=== PATIENT | female | born 1980 | race African-American/Black ===

== ENCOUNTER 2018-09-18 09:30 | Inpatient (IN) | payer OTHER ==
[2018-09-18 09:53] VITALS: BMI 18.2
--- NOTE | 2018-09-18 10:54 | HP ---
CIWA Score Nausea/Vomitin Muscle Tremors: 4-Moderate,w/Arms Extend Anxiety: 3 Agitation: 3 Paroxysmal Sweats: 3 Orientation: 0-Oriented Tacttile Disturbances: 0-None Auditory Disturbances: 0-None Visual Disturbances: 7-Constant Hallucination Headache: 2-Mild CIWA-Ar Total Score: 27 - Admission Criteria OASAS Guidelines: Admission for Medically Managed Detox: Requires at least one of the followin. CIWA greater than 12 2. Seizures within the past 24 hours 3. Delirium tremens within the past 24 hours 4. Hallucinations within the past 24 hours 5. Acute intervention needed for co occurring medical disorder 6. Acute intervention needed for co occurring psychiatric disorder 7. Severe withdrawal that cannot be handled at a lower level of care (continued vomiting, continued diarrhea, abnormal vital signs) requiring intravenous medication and/or fluids 8. Admission ROS [facility] - HPI Chief Complaint: i need to stop drinking Allergies/Adverse Reactions: Allergies Allergy/AdvReac Type Severity Reaction Status Date / Time No Known Allergies Allergy Verified 09/18/18 10:14 History of Present Illness: pt is a 37yr old female first time in our detox seeking detox for treatment. Exam Limitations: No Limitations - Ebola screening Have you traveled outside of the country in the last 21 days: No Have you had contact with anyone from an Ebola affected area: No Have you been sick,other than usual withdrawal symptoms: No Do you have a fever: No - Review of Systems Constitutional: Chills, Night Sweats, Changes in sleep EENT: reports: Tearing, Nose Congestion Respiratory: reports: Cough Cardiac: reports: Syncope GI: reports: Nausea, Vomiting, Indigestion, Abdominal cramping : reports: No Symptoms Reported Musculoskeletal: reports: No Symptoms Reported Integumentary: reports: Flushing, Sweating Neuro: reports: Headache, Tingling, Tremors Endocrine: reports: Excessive Sweating, Flushing, Intolerance to Cold, Intolerance to Heat Hematology: reports: No Symptoms Reported Psychiatric: reports: Judgement Intact, Mood/Affect Appropiate, Orientated x3, Agitated, Anxious Other Systems: Reviewed and Negative Patient History - Patient Medical History Hx Anemia: No Hx Asthma: Yes (Pt is on MDI.) Hx Chronic Obstructive Pulmonary Disease (COPD): No Hx Cancer: No Hx Cardiac Disorders: No Hx Hypertension: Yes (non compliant with meds.) Hx Hypercholesterolemia: No Hx Pacemaker: No HX Cerebrovascular Accident: No Hx Seizures: No Hx Dementia: No Hx Diabetes: No Hx Gastrointestinal Disorders: No Hx Liver Disease: No Hx Genitourinary Disorders: No Hx Sexually Transmitted Disorders: No Hx Renal Disease (ESRD): No Hx Thyroid Disease: No Hx Human Immunodeficiency Virus (HIV): No Hx Hepatitis C: No Hx Depression: Yes Hx Suicide Attempt: No Hx Bipolar Disorder: No Hx Schizophrenia: No Other Medical History: anxiety/adhd - Patient Surgical History Past Surgical History: Yes Hx Appendectomy: Yes Anesthesia Reaction: No - PPD History Previous Implant?: Yes Documented Results: Positive w/proof Implanted On Prior [facility] Admission?: No PPD to be Administered?: No - Reproductive History Patient is a Female of Child Bearing Age (11 -55 yrs old): Yes Last Menstrual Period: 09/09/18 Patient : No - Smoking Cessation Smoking history: Current every day smoker Have you smoked in the past 12 months: Yes Cigars Per Day: 3 Hx Chewing Tobacco Use: No Initiated information on smoking cessation: Yes 'Breaking Loose' booklet given: 09/18/18 - Substance & Tx. History Hx Alcohol Use: Yes Hx Substance Use: Yes Substance Use Type: Alcohol, Marijuana - Substances Abused Alcohol Route: Oral Frequency: Daily Amount used: 4-5 glasses of lala Age of first use: 28 Date of Last Use: 09/18/18 Marijuana/Hashish Route: Smoking Frequency: 1-3 times last 30 days Amount used: 2 tokes off a joint Age of first use: 17 Date of Last Use: 09/16/18 Family Disease History - Family Disease History Family History: Denies Admission Physical Exam [facility] - Vital Signs Vital Signs: Vital Signs - 24 hr 09/18/18 09:37 Temperature 99.2 F Pulse Rate 115 H Respiratory 20 Rate Blood Pressure 155/101 H - Physical General Appearance: Yes: Appropriately Dressed, Thin, Tremorous, Irritable, Sweating, Anxious HEENTM: Yes: Normal Voice, Nasal Congestion, Rhinorrhea Respiratory: Yes: Lungs Clear, Normal Breath Sounds, No Respiratory Distress Neck: Yes: No masses,lesions,Nodules Breast: Yes: Within Normal Limits Cardiology: Yes: Regular Rhythm, Regular Rate, S1, S2 Abdominal: Yes: Normal Bowel Sounds, Non Tender, Soft Genitourinary: Yes: Within Normal Limits Back: Yes: Normal Inspection Musculoskeletal: Yes: full range of Motion, Back pain Extremities: Yes: Normal Capillary Refill, Normal Inspection, Tremors Neurological: Yes: Fully Oriented, Alert, Normal Response Integumentary: Yes: Normal Color, Diaphoresis Lymphatic: Yes: Within Normal Limits - Diagnostic (1) Alcohol dependence with uncomplicated withdrawal Current Visit: Yes Status: Chronic (2) Nicotine dependence Current Visit: Yes Status: Chronic Qualifiers: Nicotine product type: cigarettes Substance use status: uncomplicated Qualified Code(s): F17.210 - Nicotine dependence, cigarettes, uncomplicated Cleared for Admission [facility] - Detox or Rehab [facility] Level of Care: Medically Managed Detox Regimen/Protocol: Librium [facility] Breath Alcohol Content Breath Alcohol Content: 0.216 Urine Pregancy Test - Result Urine Test Results: Negative- NO Line Present Urine Drug Screen - Results Drug Screen Negative: No Urine Drug Screen Results: THC-Marijuana, AMP-Amphetamines, BZO-Benzodiazepines
[2018-09-18] MEDS ORDERED: guaiFENesin/D-METHORPHAN HB 10 ML UNIT-DOSE CUPS PO PRN (11:04)
[2018-09-18] MEDS ORDERED: LOPERAMIDE HCL 2 MG CAPSULE PO PRN (11:04)
[2018-09-18] MEDS ORDERED: MAG HYDROX/AL HYDROX/SIMETH 30 ML UNIT-DOSE CUP PO PRN (11:04)
[2018-09-18] MEDS ORDERED: hydrOXYzine PAMOATE 50 MG CAPSULE (FP) PO PRN (11:04)
[2018-09-18] MEDS ORDERED: chlordiazePOXIDE HCL 25 MG CAPSULE PO PRN (11:04)
[2018-09-18] MEDS ORDERED: MAGNESIUM HYDROX 2400MG/30ML ORAL SUSPENSION 30 ML CUP PO PRN (11:04)
[2018-09-18] MEDS ORDERED: ACETAMINOPHEN 325 MG TABLET (FP) PO PRN (11:04)
[2018-09-18] MEDS ORDERED: IBUPROFEN 400 MG TABLET (FP) PO PRN (11:04)
[2018-09-18] MEDS ORDERED: NICOTINE POLACRILEX 2 MG GUM BUC PRN (11:04)
[2018-09-18] MEDS ORDERED: MAGNESIUM CITRATE 300 ML BOTTLE PO PRN (11:04)
[2018-09-18] MEDS ORDERED: MENTHOL/PHENOL 1 EACH UD MM PRN (11:04)
[2018-09-18] MEDS ORDERED: P-EPHED 60MG/TRIPROLIDI 2.5MG TABLET PO PRN (11:04)
[2018-09-18] MEDS ORDERED: ONDANSETRON *ODT* 4 MG TABLET SL PRN (11:06)
[2018-09-18] MEDS ORDERED: chlordiazePOXIDE HCL 25 MG CAPSULE PO ONE (11:30)
[2018-09-18] MEDS ORDERED: ONDANSETRON *ODT* 4 MG TABLET SL ONE (11:30)
--- NOTE | 2018-09-18 12:06 | EKG ---
Test Reason : Blood Pressure : / mmHG Vent. Rate : 109 BPM Atrial Rate : 109 BPM P-R Int : 130 ms QRS Dur : 076 ms QT Int : 394 ms P-R-T Axes : 073 038 058 degrees QTc Int : 530 ms SINUS TACHYCARDIA BIATRIAL ENLARGEMENT SEPTAL INFARCT , AGE UNDETERMINED PROLONGED QT ABNORMAL ECG NO PREVIOUS ECGS AVAILABLE Confirmed by ALF ALONSO MD ([id number]) on 09/18/2018 12:05:58 PM Referred By: Confirmed By:ALF ALONSO MD
[2018-09-18] MEDS: LISINOPRIL 10 MG TABLET (FP) PO SCH (12:16)
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
[2018-09-18] MEDS: chlordiazePOXIDE HCL 25 MG CAPSULE PO SCH ×2 (17:47→22:07)
[2018-09-18] MEDS: ALBUTEROL SO4 8 GM HFA INHALER IH PRN (17:51)
[2018-09-18] MEDS ORDERED: THIAMINE HCL 100 MG TABLET (FP) PO SCH (22:00)
[2018-09-18] MEDS ORDERED: MELATONIN 5 MG TABLETS PO PRN (22:00)
[2018-09-18 23:10] LABS: URINE APPEARANCE CLEAR; URINE BILIRUBIN NEGATIVE (<2.0 mg/dL); URINE COLOR LTYELLOW; URINE GLUCOSE (UA) NEGATIVE (NEGATIVE); URINE KETONE 2+ (NEGATIVE); URINE LEUK ESTERASE NEGATIVE (NEGATIVE); URINE NITRITE NEGATIVE (NEGATIVE); URINE PROTEIN 1+ (NEGATIVE); URINE UROBILINOGEN NEGATIVE mg/dL (0.2-1.0)
[2018-09-18 23:18] LABS: EPI CELLS RARE /HPF (FEW); URINE HYALINE CAST 4 /lpf; URINE MUCUS RARE
[2018-09-19] MEDS: chlordiazePOXIDE HCL 25 MG CAPSULE PO SCH ×2 (05:48→10:33)
[2018-09-19 09:27] VITALS: BP 121/93; PULSE 107; TEMP 99
[2018-09-19] MEDS ORDERED: NICOTINE 14 MG/24 HOURS TOPICAL PATCH TD SCH (10:00)
[2018-09-19] MEDS ORDERED: PRENATAL VITAMINS W/ FOLIC ACID TABLET (FP) PO SCH (10:00)
[2018-09-19] MEDS: LISINOPRIL 10 MG TABLET (FP) PO SCH (10:32)
[2018-09-19] MEDS: ALBUTEROL SO4 8 GM HFA INHALER IH PRN (10:33)
[2018-09-19 10:55] LABS: HEMATOCRIT 46.3 % (32.4-45.2); HEMOGLOBIN 14.8 GM/dL (10.7-15.3); MCHC 31.9 g/dl (32.0-36.0); MEAN CELL VOLUME 109.7 fl (80-96); MEAN PLT VOLUME 11.1 fl (7.5-11.1); PLATELET COUNT 143 K/MM3 (134-434); RBC 4.22 M/mm3 (3.60-5.2); RDW 14.4 % (11.6-15.6); WHITE BLOOD COUNT 5.2 K/mm3 (4.0-10.0)
[2018-09-19 11:15] LABS: ALBUMIN 4.3 g/dl (3.4-5.0); ALK PHOS 80 U/L (45-117); ANION GAP 27 MMOL/L (8-16); BILIRUBIN,TOTAL 0.4 mg/dL (0.2-1); BLOOD UREA NITROGEN 8 mg/dL (7-18); CALCIUM 8.9 mg/dL (8.5-10.1); CHLORIDE 96 mmol/L (98-107); CO2 14 mmol/L (21-32); CREATININE 0.8 mg/dL (0.55-1.3); GLUCOSE,RANDOM 57 mg/dL (74-106); POTASSIUM 3.2 mmol/L (3.5-5.1); SGOT/AST 181 U/L (15-37); SGPT/ALT 72 U/L (13-61); SODIUM 137 mmol/L (136-145); TOT PROT 8.4 g/dl (6.4-8.2)
--- NOTE | 2018-09-19 11:23 | EKG ---
Test Reason : Blood Pressure : / mmHG Vent. Rate : 088 BPM Atrial Rate : 088 BPM P-R Int : 134 ms QRS Dur : 076 ms QT Int : 422 ms P-R-T Axes : 036 041 043 degrees QTc Int : 510 ms NORMAL SINUS RHYTHM PROLONGED QT ABNORMAL ECG WHEN COMPARED WITH ECG OF 18-SEP-2018 11:46, CRITERIA FOR SEPTAL INFARCT ARE NO LONGER PRESENT NONSPECIFIC T WAVE ABNORMALITY, WORSE IN ANTERIOR LEADS Confirmed by KRISTY SAUCEDO, JR ([id number]) on 09/19/2018 11:23:21 AM Referred By: Confirmed By:JR WAGNER MD
--- NOTE | 2018-09-19 12:14 | PN ---
[facility] Progress Note Note: pt states she wants to leave because the unit is too noisy and patients are too rowdy and confrontational. she needs to be at peace and rather go home for rest. Pt was told that now the unit is quiet and she can continue to receive the treatment but she insisted to leave and signed out AMA. counselor was also informed and tried to convince pt to stay but pt she insisted on leaving.
[2018-09-19] MEDS ORDERED: POTASSIUM CHLORIDE TABS 20 MEQ TABLET.ER (FP) PO SCH (12:15)
--- NOTE | 2018-09-19 12:15 | DS ---
[facility] Detox Discharge Summary Admission Date: 09/18/18 - History Present History: Alcohol Dependence - Physical Exam Results Vital Signs: Vital Signs Temperature 99.0 F 09/19/18 09:26 Pulse Rate 107 H 09/19/18 09:26 Respiratory Rate 16 09/19/18 09:26 Blood Pressure 121/93 09/19/18 09:26 O2 Sat by Pulse Oximetry (%) - Medication Discharge Medications: Ambulatory Orders Albuterol Sulfate Inhaler - [Ventolin Hfa Inhaler -] 2 inh PO Q4H PRN 09/18/18 Dextroamphetamine/Amphetamine [Adderall 10 mg Tablet] 10 mg PO DAILY 09/18/18 LORazepam [Ativan] 1 mg PO HS 09/18/18 Lisinopril 10 mg PO DAILY 09/18/18 - Diagnosis (1) Alcohol dependence with uncomplicated withdrawal Current Visit: Yes Status: Chronic (2) Nicotine dependence Current Visit: Yes Status: Chronic Qualifiers: Nicotine product type: cigarettes Substance use status: uncomplicated Qualified Code(s): F17.210 - Nicotine dependence, cigarettes, uncomplicated - AMA Did Patient Leave Against Medical Advice: Yes (pt going home)
[2018-09-19] MEDS ORDERED: chlordiazePOXIDE HCL 25 MG CAPSULE PO SCH (17:00)
[2018-09-20] MEDS ORDERED: chlordiazePOXIDE 5 MG CAPSULE PO SCH (17:00)
[2018-09-21] MEDS ORDERED: chlordiazePOXIDE HCL 10 MG CAPSULE PO SCH (17:00)
== END 2018-09-19 12:27 | disposition left against medical advice (07) | DRG 770 ==
LOC: YASAS 09:30 → Y6N 11:08
PROC: HZ2ZZZZ Detoxification Services for Substance Abuse Treatment (ICD-10-PCS; principal; 2018-09-18)
DX: F10.230 Alcohol dependence with withdrawal, uncomplicated (principal); F17.210 Nicotine dependence, cigarettes, uncomplicated; F32.9 Major depressive disorder, single episode, unspecified; I10 Essential (primary) hypertension; J45.909 Unspecified asthma, uncomplicated; Z91.14 Patient's other noncompliance with medication regimen
CPT/HCPCS: 36415; 71046-TC-FY; 80053; 81003; 81015; 85027; 86593; 93005; 93010; Q0162